=== PATIENT | female | born 1970 | race Hispanic/Latino ===

== ENCOUNTER → 2024-09-22 | Emergency (ER) | payer BC ==
[~2024-09-22] VITALS: Ht 165.1 cm; Wt 90.7 kg
[~2024-09-22] MED LIST: ZOSYN 3.375GM+NS 50ML 50 ML ONE
[2024-09-22 11:25] VITALS: TEMP 98.9
--- NOTE | 2024-09-22 11:44 | ERN ---
ED Note History of Present Illness Stated Complaint: SHORTNESS OF BREATH Chief Complaint: Shortness of Breath Time Seen by MD: 11:27 Dictation: PATIENT IS A 54-YEAR-OLD FEMALE WITH A HISTORY OF PULMONARY FIBROSIS COMING IN TODAY WITH COMPLAINTS OF SHORTNESS A BREATH ON EXERTION FOR THE LAST TWO DAYS. NO FEVER NO CHILLS HOWEVER SHE STATES SHE HAS HAD LOSS OF TASTE AND SMELL. SHE DOES USE A NEBULIZER AT HOME, UTILIZE THIS MORNING. PATIENT NOTED TO BE EXERTIONAL DYSPNEA WITH EVEN CONVERSATION, COMPLETING 3-4 WORDS AND SAYS HIS DIFFICULT. NO CHEST PAIN NO BACK PAIN NO FEVER AT THIS TIME. NO PEDAL EDEMA Past Medical History Past Medical History: Other Additional Past Medical Hx: PULMONARY FIBROSIS Surgical History: None History: Not Applicable RN Note Reviewed/Agreed w/PFSH: Yes Review of System Dictation CONSTITUTIONAL: NEGATIVE EXCEPT FOR HPI HEAD/FACE: NEGATIVE EXCEPT FOR HPI EENT: NEGATIVE EXCEPT FOR HPI RESPIRATORY: NEGATIVE EXCEPT FOR HPI SHORTNESS A BREATH/COUGH GASTROINTESTINAL/ABDOMINAL: NEGATIVE EXCEPT FOR HPI GENITOURINARY: NEGATIVE EXCEPT FOR HPI MUSCULOSKELETAL: NEGATIVE EXCEPT FOR HPI INTEGUMENTARY: NEGATIVE EXCEPT FOR HPI NEUROLOGICAL/PSYCH: NEGATIVE EXCEPT FOR HPI HEMATOLOGIC/LYMPHATIC: NEGATIVE EXCEPT FOR HPI ALL SYSTEMS NEGATIVE, EXCEPT NOTED ABOVE. 13 POINT REVIEW OF SYSTEMS ASSESSED AND ALL NEGATIVE EXCEPT FOR ABOVE. Initial Vital Sign VS Vital Signs Date Time Temp Pulse Resp B/P (MAP) Pulse Ox O2 Delivery O2 Flow Rate FiO2 09/22/24 11:25 99.0 121 20 121/74 88 Nasal Cannula 3.0 09/22/24 12:10 28 Physical Exam Dictation VITAL SIGNS REVIEWED GENERAL APPEARANCE: ALERT, ORIENTED X 3, PATIENT NOTED TO HAVE DYSPNEA WITH THE EXERTION OF SPEECH, 3-4 WORD SENTENCES DIFFICULT HEAD AND FACE: NON-TRAUMATIC. EYES: PERRL, PINK CONJUNCTIVAS, EYELID NO TRAUMA, ANTERIOR CHAMBER WITH ARCUS SENILIS. EARS: PINNAS INTACT AND NO SIGNS OF TRAUMA OR ERYTHEMA EAR CANALS CLEAR AND NO DISCHARGE TM NO ERYTHEMA NOSE: NO DISCHARGE, NO BLEEDING. OROPHARYNX: MOUTH NORMAL, TONGUE PINK, PHARYNX CLEAR,NO ERYTHEMA, TONSILS NO EXUDATES, NO ABSCESSES NOTED, MUCOUS MEMBRANE MOIST NECK: SUPPLE, NON-TENDER, NO THYROMEGALY, NO MASSES, NO JVD, NO BRUITS BREAST:DEFERRED CHEST:NO TENDERNESS, NO CREPITUS, NO PARADOXICAL MOVEMENT, NO RETRACTIONS LUNGS:CLEAR, WELL-VENTILATED, SYMMETRIC, NO RALES, NO WHEEZING, DIMINISHED BREATH SOUNDS THROUGHOUT, MILDLY TACHYPNEIC. NO RETRACTIONS HEART: REGULAR RATE, REGULAR RHYTHM, NO MURMUR, NO GALLOPS VASCULAR: NO PERIPHERAL EDEMA, ABDOMEN: SOFT, POSITIVE BOWEL SOUNDS, NONDISTENDED, NO GUARDING, NONTENDER, NO REBOUND, NO MASSES NO HEPATOMEGALY, NO SPLENOMEGALY, NO ZACARIAS'S SIGN, NO HERNIAS. RECTAL: DEFERRED GENITAL: DEFERRED NEUROLOGICAL: NORMAL SPEECH, MOTOR FUNCTION INTACT, SENSORY FUNCTION INTACT MUSCULOSKELETAL: NECK NONTENDER, FULL RANGE OF MOTION, BACK NONTENDER, FULL RANGE OF MOTION, EXTREMITIES: NONTENDER, FULL RANGE OF MOTION SKIN: COLOR PINK, DRY, NO TURGOR, NO RASH, NO LACERATIONS, NO ABRASIONS, NO CONTUSIONS. LYMPHATIC: DEFERRED Results (Laboratory/Radiology) Laboratory/Radiology Laboratory Tests Test 09/22/24 12:00 SARS-CoV-2 Antigen (Rapid) PRESUMPTIVE NEGATIVE Labs Reviewed?: Yes ED Course ED Course Orders Procedure Category Date Status Time Covid19 (Sars Antigen LAB 09/22/24 Complete Rapid) 11:39 Methylprednisolone PHA 09/22/24 Complete Succ 125mg (Solu-Medr 12:00 Albuterol 0.083% PHA 09/22/24 Complete 2.5mg/3ml (Proventil 12:00 Budesonide 0.5 Mg/2 PHA 09/22/24 Complete Ml Inh (Pulmicort 0. 18:00 Chest 1vw RAD 09/22/24 Taken 12:31 Current Medications Medications (Trade) Dose Ordered Sig/Mireya Route PRN Reason Start Time Stop Time Status Last Admin Dose Admin Albuterol Sulfate (Proventil 0.083% 2.5mg/3ml) 5 mg ONCE ONCE 09/22/24 12:00 09/22/24 12:59 DC 09/22/24 12:02 Budesonide (Pulmicort 0.5 Mg/2ml) 0.5 mg BIDRESP IH 09/22/24 18:00 09/22/24 12:59 DC 09/22/24 12:02 Budesonide (Pulmicort 0.5 Mg/2ml) 0.5 mg STK-MED ONCE IH 09/22/24 12:00 09/22/24 12:01 DC Methylprednisolone Sodium Succinate (Solu-medROL 125MG) 125 mg ONCE ONCE IVP 09/22/24 12:00 09/22/24 12:59 DC 09/22/24 12:02 Vital Signs Date Time Temp Pulse Resp B/P (MAP) Pulse Ox O2 Delivery O2 Flow Rate FiO2 09/22/24 12:10 112 24 141/74 97 Nasal Cannula* 2 28 09/22/24 12:07 106 36 09/22/24 11:25 99.0 121 20 121/74 88 Nasal Cannula 3.0 Medical Decision Making MDM PATIENT HAD WRONG ACCOUNT SEE NEW DOCUMENTATION DX & DISP Disposition: Discharge Departure Impression: Primary Impression: SOB (shortness of breath) Condition: Stable Time of Disposition: 13:05 I have reviewed the case, and I agree with, Diagnosis and Plan FABIAN MARCELINO NP Sep 22, 2024 11:44
[2024-09-22] MEDS: BUDESONIDE 0.5 MG/2 ML INH IH SCH (12:02)
[2024-09-22] MEDS: Solu-medROL 125MG VIAL IVP ONE (12:02)
[2024-09-22] MEDS: ALBUTEROL 0.083% 2.5 MG/3 ML INH IH ONE (12:02)
[2024-09-22] MEDS: BUDESONIDE 0.5 MG/2 ML INH IH ONE (12:06)
[2024-09-22 12:07] VITALS: PULSE 106; RESP 36
[2024-09-22 12:10] VITALS: BP 141/74; PULSE 112; RESP 24; O2SAT 97
--- NOTE | 2024-09-22 13:08 | HMCIMG ---
Exam Type: CHEST 1VW Clinical Information: SOB. HISTORY OF PULMONARY FIBROSIS Comparison: None Findings: The lungs exam demonstrates interstitial markings prominence consistent with interstitial pulmonary fibrotic changes. There is no airspace disease to suggest pneumonia. The heart is normal in size. The bone examination shows no significant abnormalities. Impression: Interstitial pulmonary fibrotic changes. No airspace disease.
--- NOTE | 2024-09-22 13:08 | NUR ---
WRONG PATIENT ENTERED IN SYSTEM. ORDERS ENTERED IN ERROR. CORRECT MEDICAL RECORD IS [id number]
== END ==
LOC: EDBD 11:24 → EDH 11:24
DX: R06.02 Shortness of breath (principal); Z79.51 Long term (current) use of inhaled steroids; Z20.822 Contact with and (suspected) exposure to COVID-19
CPT/HCPCS: 99284; 96374; 71045; 87426; J2919; J2543